=== PATIENT | male | born 1980 | race Asian ===

== ENCOUNTER 2020-01-15 03:39 | Emergency (ER) | payer SELFPAY ==
[~2020-01-15] VITALS: Ht 172.7 cm; Wt 104.3 kg
[2020-01-15 06:11] VITALS: BP 142/89
== END 2020-01-15 05:34 | disposition home or self-care (01) ==
LOC: ED 03:39
DX: J02.9 Acute pharyngitis, unspecified (principal); Z20.828 Contact with and (suspected) exposure to other viral communicable diseases